=== PATIENT | female | born 1960 | race Caucasian/White ===

== ENCOUNTER 2019-07-01 20:30 | Observation (INO) ==
[2019-07-01] MEDS ORDERED: 0.9 % Sodium Chloride 1,000 ML IVC ONE ×2 (21:07→22:17)
[2019-07-01 21:56] LABS: Hematocrit 35.3 % (35.3-44.9); Hemoglobin 11.3 g/dL (11.5-15.4); Mean Corpuscular Hemoglobin 28.1 pg (28.0-33.3); Mean Corpuscular Volume 87.8 fL (83.0-100.0); Platelet Count 188 K/mcL (140-400); Red Blood Count 4.02 M/mcL (3.82-4.97); Red Cell Distribution Width 12.7 % (11.5-14.5); White Blood Count 6.5 K/mcL (4.3-11.1)
[2019-07-01 21:57] LABS: INR 1.2; Prothrombin Time 13.2 Seconds (9.4-12.1)
[2019-07-01 21:58] LABS: Bilirubin,Urine Negative (Negative); Blood,Urine Large (Negative); Clarity,Urine Turbid (Clear); Color,Urine Dark Yellow (Yellow); Glucose,Urine (UA) 250 mg/dL (Normal); Ketones,Urine 40 mg/dL (Negative); Leukocyte Esterase,Urine Large (Negative); Nitrite,Urine Positive (Negative); Protein,Urine 100 mg/dL (Neg-Trace); Specific Gravity,Urine 1.022 (1.010-1.025); Urobilinogen,Urine Normal (Normal)
[2019-07-01 21:59] LABS: Activated Partial Thrombo Time 27.8 Seconds (26.0-36.0)
[2019-07-01 22:01] LABS: Bacteria,Urine Moderate per hpf (None-Few); Hyaline Casts,Urine None Seen per lpf (None-Few); RBC,Urine TNTC per hpf (0-3); Squamous Epithelial Cell,Urine Many per lpf (None-Few); WBC,Urine TNTC per hpf (0-3)
[2019-07-01] MEDS ORDERED: *HR* HYDROmorphone (PF) 1 MG/ML SYRINGE IVP ONE (22:06)
[2019-07-01] MEDS ORDERED: Ondansetron 4 MG/2 ML VIAL IVP ONE (22:06)
[2019-07-01 22:14] LABS: Alanine Aminotransferase 19 Units/L (7-52); Albumin 4.1 g/dL (3.5-5.7); Albumin/Globulin Ratio 1.3 (1.1-2.2); Alkaline Phosphatase 72 Units/L (34-104); Aspartate Amino Transferase 25 Units/L (13-39); BUN/Creatinine Ratio 17 (6-26); Bilirubin,Direct 0.2 mg/dL (0.0-0.2); Bilirubin,Indirect 1.1 mg/dL (0.0-1.0); Bilirubin,Total 1.3 mg/dL (0.3-1.0); Blood Urea Nitrogen 15 mg/dL (6-20); Calcium 9.2 mg/dL (8.6-10.3); Carbon Dioxide 23 mEq/L (23-29); Chloride 101 mEq/L (98-107); Globulin 3.2 g/dL (2.4-3.5); Glucose 207 mg/dL (70-105); Magnesium 1.5 mg/dL (1.6-2.6); Osmolality,Calculated 283 (280-300); Phosphorous 1.4 mg/dL (2.7-4.5); Potassium 3.7 mEq/L (3.5-5.1); Sodium 133 mEq/L (136-145); Total Protein 7.3 g/dL (6.4-8.9); Troponin I < 0.03 ng/mL (< 0.04); eGFR For African Americans > 60 (> 60); eGFR For Non-African Americans > 60 (> 60)
[2019-07-01] MEDS ORDERED: cefTRIAXone 1,000 MG in Water for inj. (sterile) 10 ML IVP ONE ×2 (22:20→23:00)
[2019-07-01 22:29] LABS: Lymphocytes # 0.1 K/mcL (0.6-4.6); Neutrophils # 6.4 K/mcL (1.6-8.9)
[2019-07-01] MEDS ORDERED: Vancomycin 1,000 MG VIAL ONE (22:55)
[2019-07-01] MEDS ORDERED: *HR* Dextrose 50 % in Water (Syg) 50 ML SYRINGE IVP PRN (23:32)
[2019-07-01] MEDS ORDERED: Naloxone 0.4 MG/ML INJ IVP PRN (23:32)
[2019-07-01] MEDS ORDERED: D5% in Water 1,000 ML IVC PRN (23:32)
[2019-07-01] MEDS ORDERED: Dextrose Gel 15 GM/37.5 ML TUBE PO PRN ×2 (23:32)
[2019-07-01] MEDS ORDERED: Vancomycin (wt based) 1,000 MG VIAL IVPB SCH (23:45)
[2019-07-01] MEDS ORDERED: Acetaminophen 325 MG TABLET PO PRN (23:46)
[2019-07-02 01:55] LABS: INR 1.2; Prothrombin Time 14.1 Seconds (9.4-12.1)
[2019-07-02 01:57] LABS: Hematocrit 29.7 % (35.3-44.9); Lymphocytes # 0.1 K/mcL (0.6-4.6); Mean Corpuscular HGB Conc 31.6 g/dL (31.6-35.5); Mean Corpuscular Hemoglobin 28.1 pg (28.0-33.3); Mean Corpuscular Volume 88.7 fL (83.0-100.0); Mean Platelet Volume 10.8 fL (9.4-12.4); Platelet Count 128 K/mcL (140-400); Red Blood Count 3.35 M/mcL (3.82-4.97); Red Cell Distribution Width 12.7 % (11.5-14.5); White Blood Count 6.5 K/mcL (4.3-11.1)
[2019-07-02 02:22] LABS: Hemoglobin 9.4 g/dL (11.5-15.4)
[2019-07-02 02:40] LABS: Alanine Aminotransferase 14 Units/L (7-52); Albumin 3.4 g/dL (3.5-5.7); Albumin/Globulin Ratio 1.3 (1.1-2.2); Alkaline Phosphatase 57 Units/L (34-104); Aspartate Amino Transferase 21 Units/L (13-39); BUN/Creatinine Ratio 21 (6-26); Bilirubin,Total 1.2 mg/dL (0.3-1.0); Blood Urea Nitrogen 13 mg/dL (6-20); Calcium 7.6 mg/dL (8.6-10.3); Carbon Dioxide 18 mEq/L (23-29); Chloride 107 mEq/L (98-107); Globulin 2.6 g/dL (2.4-3.5); Glucose 226 mg/dL (70-105); Magnesium 1.5 mg/dL (1.6-2.6); Monocytes # 0.1 K/mcL (0.0-1.3); Neutrophils # 6.2 K/mcL (1.6-8.9); Osmolality,Calculated 287 (280-300); Phosphorous 2.1 mg/dL (2.7-4.5); Platelet Estimate Slight Decrease (Normal); Potassium 3.5 mEq/L (3.5-5.1); Sodium 135 mEq/L (136-145); Thyroid Stimulating Hormone 0.902 mcIU/mL (0.340-5.600); eGFR For African Americans > 60 (> 60); eGFR For Non-African Americans > 60 (> 60)
[2019-07-02 02:53] LABS: Estimated Average Glucose 163 mg/dl
[2019-07-02] MEDS ORDERED: Aspirin Enteric Coated 325 MG Tablet PO ONE (04:33)
[2019-07-02] MEDS ORDERED: Ondansetron 4 MG/2 ML VIAL IVP ONE (05:47)
[2019-07-02] MEDS: Insulin LISPRO 300 UNITS/3 ML VIAL SQ SCH ×3 (10:02→19:48)
[2019-07-02] MEDS ORDERED: *HR* Propofol 200 MG/20 ML VIAL IVP ONE (15:19)
[2019-07-02] MEDS ORDERED: Lidocaine -MPF 2% 2 ML VIAL ONE (15:19)
[2019-07-02] MEDS ORDERED: *HR* Midazolam HCl 2 MG/2 ML VIAL ONE ×2 (15:19→15:47)
[2019-07-02] MEDS ORDERED: *HR* FentaNYL (PF) 100 MCG/2 ML VIAL ONE (15:19)
[2019-07-02] MEDS ORDERED: Gentamicin 80 MG in 0.9 % Sodium Chloride 100 ML IVPB STA (15:42)
[2019-07-02] MEDS ORDERED: Dexamethasone 4 MG/ML VIAL ONE (16:01)
[2019-07-02] MEDS ORDERED: *HR* Dextrose 50 % in Water (Syg) 50 ML SYRINGE IVP PRN (17:13)
[2019-07-02] MEDS ORDERED: D5% in Water 1,000 ML IVC PRN (17:13)
[2019-07-02] MEDS ORDERED: Naloxone 0.4 MG/ML INJ IVP PRN (17:13)
[2019-07-02] MEDS ORDERED: Acetaminophen 325 MG TABLET PO PRN ×2 (17:13→17:27)
[2019-07-02] MEDS ORDERED: Dextrose Gel 15 GM/37.5 ML TUBE PO PRN ×2 (17:13)
[2019-07-02] MEDS ORDERED: Ondansetron 4 MG/2 ML VIAL IVP PRN (17:28)
[2019-07-02] MEDS: *HR* Heparin 5,000 UNIT/ML VIAL SQ SCH (17:42)
[2019-07-02] MEDS ORDERED: *HR* Heparin 5,000 UNIT/ML VIAL SQ SCH (18:00)
[2019-07-02] MEDS ORDERED: cefTRIAXone 2,000 MG in Water for inj. (sterile) 20 ML IVP SCH (21:00)
[2019-07-02] MEDS ORDERED: Aminoglycoside Consult 1 EACH MC ONE (23:26)
[2019-07-03] MEDS: *HR* Heparin 5,000 UNIT/ML VIAL SQ SCH (05:34)
[2019-07-03] MEDS: Insulin LISPRO 300 UNITS/3 ML VIAL SQ SCH ×2 (09:22→12:53)
[2019-07-03 10:53] VITALS: BP 137/83
[2019-07-03] MEDS ORDERED: cefTRIAXone 2,000 MG in Water for inj. (sterile) 20 ML IVP SCH (11:44)
== END 2019-07-03 15:48 | disposition home or self-care (01) ==
LOC: EMEROOARM 20:30 → 3ANU 20:30 → SUATTDRO 23:25 → 3ANU 07-02 00:13
PROVIDERS: ADMIT Student in an Organized Health Care Education/Training Program; ATTEND Internal Medicine

== ENCOUNTER 2019-09-12 04:49 | Observation (INO) ==
[2019-09-12] MEDS ORDERED: 0.9 % Sodium Chloride 1,000 ML IVC STA (05:14)
[2019-09-12] MEDS ORDERED: Ondansetron 4 MG/2 ML VIAL IVP STA (05:15)
[2019-09-12] MEDS ORDERED: Isovue-370 500 ML BOTTLE IVP ONE (06:18)
[2019-09-12 06:20] LABS: Bilirubin,Urine Negative (Negative); Blood,Urine Large (Negative); Clarity,Urine Cloudy (Clear); Color,Urine Orange (Yellow); Glucose,Urine (UA) Normal (Normal); Ketones,Urine Trace mg/dL (Negative); Leukocyte Esterase,Urine Large (Negative); Nitrite,Urine Positive (Negative); Protein,Urine 100 mg/dL (Neg-Trace); Specific Gravity,Urine 1.016 (1.010-1.025); Urobilinogen,Urine Normal (Normal)
[2019-09-12 06:21] LABS: Basophils % 0.4 %; Eosinophils % 0.1 %; Hemoglobin 10.4 g/dL (11.5-15.4); Immature Granulocytes % 0.6 % (0-4); Lymphocytes # 0.4 K/mcL (0.6-4.6); Lymphocytes % 4.8 %; Mean Corpuscular HGB Conc 32.5 g/dL (31.6-35.5); Mean Corpuscular Hemoglobin 27.8 pg (28.0-33.3); Mean Corpuscular Volume 85.6 fL (83.0-100.0); Mean Platelet Volume 10.7 fL (9.4-12.4); Monocytes # 0.7 K/mcL (0.0-1.3); Monocytes % 9.2 %; Neutrophils # 6.8 K/mcL (1.6-8.9); Platelet Count 182 K/mcL (140-400); Red Blood Count 3.74 M/mcL (3.82-4.97); Red Cell Distribution Width 13.3 % (11.5-14.5); Segmented Neutrophils % 84.9 %; White Blood Count 8.1 K/mcL (4.3-11.1)
[2019-09-12 06:23] LABS: Bacteria,Urine None Seen per hpf (None-Few); Hyaline Casts,Urine None Seen per lpf (None-Few); Squamous Epithelial Cell,Urine Few per lpf (None-Few); WBC,Urine TNTC per hpf (0-3)
[2019-09-12 06:42] LABS: Alanine Aminotransferase 7 Units/L (7-52); Albumin 3.8 g/dL (3.5-5.7); Albumin/Globulin Ratio 1.3 (1.1-2.2); Alkaline Phosphatase 55 Units/L (34-104); Aspartate Amino Transferase 10 Units/L (13-39); BUN/Creatinine Ratio 17 (6-26); Blood Urea Nitrogen 16 mg/dL (6-20); Calcium 9.3 mg/dL (8.6-10.3); Carbon Dioxide 24 mEq/L (23-29); Chloride 99 mEq/L (98-107); Globulin 2.9 g/dL (2.4-3.5); Glucose 167 mg/dL (70-105); Osmolality,Calculated 281 (280-300); Potassium 3.7 mEq/L (3.5-5.1); Sodium 133 mEq/L (136-145); Total Protein 6.7 g/dL (6.4-8.9); Troponin I < 0.03 ng/mL (< 0.04); eGFR For African Americans > 60 (> 60); eGFR For Non-African Americans 60 (> 60)
[2019-09-12] MEDS ORDERED: cefTRIAXone 1,000 MG in Water for inj. (sterile) 10 ML IVP ONE (06:55)
[2019-09-12] MEDS ORDERED: Ampicillin/Sulbactam 3,000 MG in 0.9 % Sodium Chloride Mini Bag 100 ML IVPB ONE (07:05)
[2019-09-12] MEDS ORDERED: Naloxone 0.4 MG/ML INJ IVP PRN (08:27)
[2019-09-12] MEDS ORDERED: Ondansetron ODT 4 MG TAB.RAPDIS SL PRN (08:27)
[2019-09-12] MEDS ORDERED: Acetaminophen 325 MG TABLET PO PRN (08:27)
[2019-09-12] MEDS ORDERED: D5% in Water 1,000 ML IVC PRN (08:33)
[2019-09-12] MEDS ORDERED: *HR* Dextrose 50 % in Water (Syg) 50 ML SYRINGE IVP PRN (08:33)
[2019-09-12] MEDS ORDERED: Dextrose Gel 15 GM/37.5 ML TUBE PO PRN ×2 (08:33)
[2019-09-12] MEDS ORDERED: Famotidine 20 MG TABLET PO PRN (09:03)
[2019-09-12] MEDS: Insulin LISPRO 300 UNITS/3 ML VIAL SQ SCH ×2 (12:01→17:00)
[2019-09-12] MEDS: Ampicillin 2 GM in 0.9 % Sodium Chloride Mini Bag 100 ML IVPB SCH ×3 (12:02→23:47)
[2019-09-12] MEDS: 0.9 % Sodium Chloride 1,000 ML IVC SCH ×2 (14:34→23:48)
[2019-09-12] MEDS: *HR* Heparin 5,000 UNIT/ML VIAL SQ SCH ×2 (14:34→22:00)
[2019-09-12] MEDS ORDERED: Insulin LISPRO 300 UNITS/3 ML VIAL SQ SCH (21:00)
[2019-09-13 00:40] LABS: Hematocrit 29.4 % (35.3-44.9); Hemoglobin 9.5 g/dL (11.5-15.4); Mean Corpuscular HGB Conc 32.3 g/dL (31.6-35.5); Mean Corpuscular Hemoglobin 28.2 pg (28.0-33.3); Mean Corpuscular Volume 87.2 fL (83.0-100.0); Mean Platelet Volume 10.5 fL (9.4-12.4); Platelet Count 153 K/mcL (140-400); Red Blood Count 3.37 M/mcL (3.82-4.97); Red Cell Distribution Width 13.2 % (11.5-14.5); White Blood Count 4.6 K/mcL (4.3-11.1)
[2019-09-13 01:00] LABS: BUN/Creatinine Ratio 16 (6-26); Blood Urea Nitrogen 13 mg/dL (6-20); Calcium 8.7 mg/dL (8.6-10.3); Carbon Dioxide 26 mEq/L (23-29); Chloride 102 mEq/L (98-107); Glucose 193 mg/dL (70-105); Osmolality,Calculated 285 (280-300); Potassium 3.2 mEq/L (3.5-5.1); Sodium 135 mEq/L (136-145); eGFR For African Americans > 60 (> 60); eGFR For Non-African Americans > 60 (> 60)
[2019-09-13] MEDS: Ampicillin 2 GM in 0.9 % Sodium Chloride Mini Bag 100 ML IVPB SCH ×2 (06:54→13:05)
[2019-09-13] MEDS: *HR* Heparin 5,000 UNIT/ML VIAL SQ SCH ×3 (06:55→21:42)
[2019-09-13] MEDS ORDERED: Insulin LISPRO 300 UNITS/3 ML VIAL SQ SCH (07:16)
[2019-09-13] MEDS: lisinopriL 5 MG TABLET PO SCH (08:01)
[2019-09-13] MEDS: Loratadine 10 MG TABLET PO SCH (08:02)
[2019-09-13] MEDS: Insulin LISPRO 300 UNITS/3 ML VIAL SQ SCH ×3 (08:02→17:02)
[2019-09-13] MEDS ORDERED: Nitrofurantoin (BID) 100 MG CAPSULE PO SCH (17:00)
[2019-09-14 00:32] LABS: Eosinophils # 0.1 K/mcL (0.0-0.6); Eosinophils % 1.9 %; Hematocrit 29.1 % (35.3-44.9); Hemoglobin 9.3 g/dL (11.5-15.4); Immature Granulocytes % 0.3 % (0-4); Lymphocytes # 0.5 K/mcL (0.6-4.6); Lymphocytes % 16.6 %; Mean Corpuscular Hemoglobin 27.8 pg (28.0-33.3); Mean Corpuscular Volume 87.1 fL (83.0-100.0); Mean Platelet Volume 10.9 fL (9.4-12.4); Monocytes # 0.4 K/mcL (0.0-1.3); Monocytes % 11.2 %; Neutrophils # 2.2 K/mcL (1.6-8.9); Platelet Count 158 K/mcL (140-400); Red Blood Count 3.34 M/mcL (3.82-4.97); Red Cell Distribution Width 12.8 % (11.5-14.5); White Blood Count 3.1 K/mcL (4.3-11.1)
[2019-09-14 00:49] LABS: BUN/Creatinine Ratio 19 (6-26); Blood Urea Nitrogen 16 mg/dL (6-20); Calcium 8.8 mg/dL (8.6-10.3); Carbon Dioxide 24 mEq/L (23-29); Chloride 105 mEq/L (98-107); Glucose 220 mg/dL (70-105); Osmolality,Calculated 288 (280-300); Potassium 3.8 mEq/L (3.5-5.1); Sodium 135 mEq/L (136-145); eGFR For African Americans > 60 (> 60); eGFR For Non-African Americans > 60 (> 60)
[2019-09-14] MEDS: *HR* Heparin 5,000 UNIT/ML VIAL SQ SCH (06:23)
[2019-09-14 06:50] VITALS: BP 104/43
[2019-09-14] MEDS: Insulin LISPRO 300 UNITS/3 ML VIAL SQ SCH (07:28)
[2019-09-14] MEDS: lisinopriL 5 MG TABLET PO SCH (07:28)
[2019-09-14] MEDS: Loratadine 10 MG TABLET PO SCH (07:28)
== END 2019-09-14 10:00 | disposition home or self-care (01) ==
LOC: EMEROOARM 04:49 → 2ANU 04:49 → SUATTDRO 08:50 → 2ANU 09:33
PROVIDERS: ADMIT Internal Medicine; ATTEND Family Medicine